=== PATIENT | female | born 1955 ===

== ENCOUNTER 2019-01-11 05:05 | Day surgery (SDC) | payer OTHER ==
[~2019-01-11 05:05] MED LIST: BONIVA150 MG PO; CELEBREX200MG PO; FOLIC ACID1 MG PO; GABAPENTIN400 MG PO; PREDNISONE 5MG; VITAMIN D350000 UNIT PO; [UNRECOGNIZED DRUG - OTHER]
[2019-01-11] MEDS ORDERED: FLAGYL500MG PO (09:50)
== END 2019-01-11 13:20 | disposition home or self-care (01) ==
LOC: CIR.AMB 05:05
DX: N88.2 Stricture and stenosis of cervix uteri (principal)